=== PATIENT | female | born 1995 | race Caucasian/White ===

== ENCOUNTER 2016-06-01 19:58 | Emergency (ER) | payer OTHER ==
[~2016-06-01] VITALS: Ht 167.6 cm; Wt 67.0 kg
[~2016-06-01 19:58] MED LIST: TRAM50TA PO
[2016-06-01 20:10] VITALS: BP 134/89; PULSE 90; RESP 18; TEMP 98.7; O2SAT 99
[2016-06-01] MEDS ORDERED: ONDANSETRON HCL 4 MG/2 ML VIAL IV PUSH ONE (20:30)
[2016-06-01] MEDS ORDERED: MORPHINE SULFATE 4 MG/ML INJ IV PUSH ONE (20:30)
[2016-06-01] MEDS: SODIUM CHLOR 0.9% 1000 ML INJ 1,000 ML IV SCH ×2 (20:45→22:55)
[2016-06-01] MEDS ORDERED: PROPOFOL 200 MG/20 ML AMP IV ONE (21:15)
[2016-06-01] MEDS ORDERED: KETOROLAC TROMETHAMINE 30 MG/ML (IVP) VIAL IV PUSH ONE (21:15)
--- NOTE | 2016-06-01 21:17 | RADHPO ---
EXAM DATE/TIME: 06/01/2016 20:55 [facility] COMPARISON: SHOULDER LEFT LTD (2VWS), February 26, 2016, 17:27. INDICATIONS : Patient states she dislocated her shoulder lifting weights tonight. MEDICAL HISTORY : None. SURGICAL HISTORY : None. ENCOUNTER: Initial ACUITY: 1 day PAIN SCORE: 10/10 LOCATION: Left Shoulder FINDINGS: Left glenohumeral joint is anteriorly dislocated. No definite fracture. CONCLUSION: Anteriorly dislocated left glenohumeral joint. Jeison Hood MD on June 01, 2016 at 21:15 Board Certified Radiologist. This report was verified electronically.
[2016-06-01 21:25] VITALS: O2SAT 100
--- NOTE | 2016-06-01 21:38 | PD ---
Physical Exam Narrative I was asked by my colleague Dr. Irizarry to perform procedural sedation for closed reduction of left shoulder dislocation. Data Data Last Documented VS Vital Signs Date Time Temp Pulse Resp B/P Pulse Ox O2 Delivery O2 Flow Rate FiO2 06/01/16 20:50 20 06/01/16 20:20 Room Air 06/01/16 20:10 98.7 90 134/89 99 Orders Shoulder, Limited(2vws) (06/01/16 ) Ed Urine Pregnancytest Poc (06/01/16 20:24) ^ Saline Lock (06/01/16 20:24) Ice/Cold Pack (06/01/16 20:24) Ondansetron Inj (Zofran Inj) (06/01/16 20:30) Morphine Inj (Morphine Inj) (06/01/16 20:30) Sodium Chlor 0.9% 1000 Ml Inj (Ns 1000 M (06/01/16 20:30) Ketorolac Inj (Toradol Inj) (06/01/16 21:15) Propofol 200 Mg/20 Ml Inj (Diprivan 200 (06/01/16 21:15) MDM Supervised Visit with CHRISTINE: No Procedures Procedure Narrative Procedural sedation for closed reduction of left shoulder dislocation: After the risks and benefits were discussed the following procedure was performed: MODERATE SEDATION: The patient was placed on a monitor and storage bin tender and pulse oximetry. An ambu bag and suction was immediately available at bedside. The patient was monitored by the nurse. Oxygen saturation , heart rate and blood pressure were monitored. Procedural sedation was acheived using 190 mg of IV propofol. The patient was observed until awake and alert. Procedural Sedation time in attendance was 20 minutes. Ad Prieto MD Jun 01, 2016 21:38
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
[2016-06-01] MEDS ORDERED: IBUP-232 PO (22:02)
[2016-06-01] MEDS ORDERED: HYDR-3533 PO (22:02)
[2016-06-01 22:10] VITALS: BP 140/70; PULSE 62; RESP 16; O2SAT 99
--- NOTE | 2016-06-01 22:22 | RADHPO ---
EXAM DATE/TIME: 06/01/2016 21:54 [facility] COMPARISON: SHOULDER LEFT LTD (2VWS), June 01, 2016, 20:55. SHOULDER LEFT (1 VW), February 26, 2016, 18:01. INDICATIONS : Post reduction left shoulder. MEDICAL HISTORY : None. SURGICAL HISTORY : None. ENCOUNTER: Subsequent ACUITY: 1 day PAIN SCORE: 3/10 LOCATION: Left Shoulder FINDINGS: The anterior dislocation of the left glenohumeral joint seen earlier tonight has been reduced into no rmal alignment. There is a shallow Hill-Sachs lesion of the humeral head. Glenoid appears intact. No displaced fracture. CONCLUSION: Reduced glenohumeral joint dislocation. Humeral head Hill-Sachs lesion. No displaced fracture. Jeison Hood MD on June 01, 2016 at 22:19 Board Certified Radiologist. This report was verified electronically.
[2016-06-01 23:14] VITALS: RESP 16
[2016-06-01 23:15] VITALS: BP 139/69
== END 2016-06-01 23:16 | disposition home or self-care (01) ==
LOC: PHED 19:58
DX: S43.015A Anterior dislocation of left humerus, initial encounter (principal); X50.0XXA Overexertion from strenuous movement or load, initial encounter; Y93.B3 Activity, free weights; Y92.9 Unspecified place or not applicable
CPT/HCPCS: 23650; 73030; 84703; 94770; 96361; 96374; 96375; 99156; 99283; J1885; J2270; J2405; J7030